=== PATIENT | male | born 1955 | race Caucasian/White ===

== ENCOUNTER 2021-01-27 18:07 | Emergency (ER) | payer OTHER ==
[~2021-01-27] VITALS: Ht 165.1 cm; Wt 104.3 kg
[2021-01-27 18:16] VITALS: BP 165/83
[2021-01-27] MEDS ORDERED: MAGNESIUM CITRATE 300 ML BTL PO ONE (19:00)
[2021-01-27 19:16] LABS: BASOPHILS # (AUTO) 0.1 K/uL (0.00-0.22); BASOPHILS % (AUTO) 0.6 % (0.0-2.0); EOSINOPHILS # (AUTO) 0.2 K/uL (0-0.4); EOSINOPHILS % (AUTO) 2.6 % (0.0-4.0); HEMATOCRIT 36.3 % (36-52); HEMOGLOBIN 12.3 g/dL (12.0-18.0); LYMPHOCYTES # (AUTO) 1.8 K/uL (2.0-11.5); LYMPHOCYTES % (AUTO) 20.1 % (20.5-51.1); MEAN CORPUSCULAR HEMOGLOBIN 33 pg (27-31); MEAN CORPUSCULAR HGB CONC 34 g/dL (33-37); MEAN CORPUSCULAR VOLUME 96.3 fL (80-94); MONOCYTES # (AUTO) 0.7 K/uL (0.8-1.0); MONOCYTES % (AUTO) 8.4 % (1.7-9.3); NEUTROPHILS % (AUTO) 68.3 % (42.2-75.2); PLATELET COUNT (AUTO) 262 K/uL (140-450); RED BLOOD CELL COUNT(AUTO) 3.77 MIL/uL (4.20-6.10); RED CELL DISTRIBUTION WIDTH 13.7 % (11.6-13.7); WHITE BLOOD COUNT (AUTO) 8.8 K/uL (4.8-10.8)
[2021-01-27 19:35] LABS: ANION GAP 11.7 (8-16); CARBON DIOXIDE 26.6 mmol/L (21-32); CREATININE 1.4 mg/dL (0.6-1.3); POTASSIUM 4.3 mmol/L (3.5-5.1); TOTAL BILIRUBIN 0.3 mg/dL (0.0-1.0)
--- NOTE | 2021-01-27 20:04 | NUR ---
pt. taken to x-ray
--- NOTE | 2021-01-27 20:07 | NUR ---
PT TAKEN TO BED #11 VIA W/C
[2021-01-27] MEDS ORDERED: MAGNESIUM CITRATE 300 ML BTL ONE (20:15)
[2021-01-27 20:23] VITALS: BP 146/87
--- NOTE | 2021-01-27 20:30 | NUR ---
Dr. Limon with pt for MSE
[2021-01-27] MEDS ORDERED: DOCU-299 PO (21:06)
[2021-01-27] MEDS ORDERED: MIRABULK PO (21:06)
--- NOTE | 2021-01-27 21:20 | NUR ---
Patient discharged with v/s stable. Written and verbal after care instructions given and explained. Patient alert, oriented and verbalized understanding of instructions. Ambulatory with steady gait. All questions addressed prior to discharge. ID band removed. Patient advised to follow up with PMD. Rx of MIRALAX AND COLACE given. Patient educated on indication of medication including possible reaction and side effects. Opportunity to ask questions provided and answered.
== END 2021-01-27 21:20 | disposition home or self-care (01) ==
LOC: MED 18:07
DX: K59.03 Drug induced constipation (principal); T40.2X5A Adverse effect of other opioids, initial encounter; I10 Essential (primary) hypertension; Z98.890 Other specified postprocedural states; Z79.899 Other long term (current) drug therapy; Y92.89 Other specified places as the place of occurrence of the external cause
CPT/HCPCS: 36415; 74018; 80053; 81002; 83690; 85025; 99284

== ENCOUNTER 2021-02-03 13:38 | Emergency (ER) | payer OTHER ==
[~2021-02-03] VITALS: Ht 165.1 cm; Wt 109.8 kg
[~2021-02-03 13:38] MED LIST: DOCU-299 PO; MIRABULK PO
[2021-02-03 14:04] VITALS: BP 138/73
--- NOTE | 2021-02-03 14:09 | NUR ---
SPECIMEN CUP FOR URINE COLLECTION GIVEN TO PATIENT
--- NOTE | 2021-02-03 14:10 | NUR ---
ASKED PT TO WAIT IN LOBBY
--- NOTE | 2021-02-03 14:47 | NUR ---
PT AMBULATED TO BED 9
--- NOTE | 2021-02-03 15:00 | NUR ---
65 y/o M BIB self from home with c/c Right flank pain x 5AM today. Patient A&Ox, ambulatory, states he was seen here 1-2 weeks ago for constipation and states concern of possible kidney stones. Patient reports history of kidney stones and states symptoms are similar. Patient reports 9/10, sharp, constant, non-radiating pain to R flank region. Patient reports [place] 5-325 at 0530 today without relief to pain. patietn denies dysuria, abdominal pain, N/V/D, SOB, chest pain, dizziness, other urinary or bladder symptoms. patietn states last BM today/hard/small/dark brown & green. Staets pain worsens wit hsitting up and drinking fluids; laying down alleviates pain. Patient placed into a gown. VSS; respirations even/unlabored. residential monitor in place. Bed locked in lowest position, side rails x 1, call light in reach. PMH: HTN, kidney stones Meds: Metoprolol NKA Sx: denies
--- NOTE | 2021-02-03 15:18 | NUR ---
Dr. Sherwood is evaluating patient at bedside.
[2021-02-03] MEDS ORDERED: KETOROLAC 30 MG/ML VIAL IVP ONE (15:30)
[2021-02-03] MEDS ORDERED: NACL 0.9% 1,000 ML IV ONE (15:30)
--- NOTE | 2021-02-03 15:41 | NUR ---
Patient transported to CT via wheelchair. IV fluids and Toradol withheld until patient returns.
--- NOTE | 2021-02-03 16:00 | NUR ---
Patient returned from CT via wheelchair.
--- NOTE | 2021-02-03 16:46 | NUR ---
Lab at bedside.
[2021-02-03 16:58] LABS: BASOPHILS # (AUTO) 0.2 K/uL (0.00-0.22); BASOPHILS % (AUTO) 2.4 % (0.0-2.0); EOSINOPHILS # (AUTO) 0.2 K/uL (0-0.4); HEMATOCRIT 31.2 % (36-52); HEMOGLOBIN 10.7 g/dL (12.0-18.0); MEAN CORPUSCULAR HEMOGLOBIN 33 pg (27-31); MEAN CORPUSCULAR HGB CONC 34 g/dL (33-37); MEAN CORPUSCULAR VOLUME 96.1 fL (80-94); MONOCYTES % (AUTO) 12.9 % (1.7-9.3); NEUTROPHILS # (AUTO) 5.3 K/uL (1.8-7.7); NEUTROPHILS % (AUTO) 68.7 % (42.2-75.2); PLATELET COUNT (AUTO) 243 K/uL (140-450); RED BLOOD CELL COUNT(AUTO) 3.24 MIL/uL (4.20-6.10); RED CELL DISTRIBUTION WIDTH 13.5 % (11.6-13.7); WHITE BLOOD COUNT (AUTO) 7.8 K/uL (4.8-10.8)
[2021-02-03 17:10] LABS: ANION GAP 13.3 (8-16); CARBON DIOXIDE 25.3 mmol/L (21-32); POTASSIUM 4.6 mmol/L (3.5-5.1)
--- NOTE | 2021-02-03 17:14 | NUR ---
Patient ambulated to restroom with steady/even gait.
--- NOTE | 2021-02-03 17:29 | NUR ---
Patient reports pain 03/10; Dr. Sherwood made aware and orders placed.
[2021-02-03] MEDS ORDERED: HYDROcodone/APAP 5/325 MG 1 TAB TAB PO ONE (17:30)
[2021-02-03 17:39] LABS: APPEARANCE,URINE CLEAR (CLEAR); BILIRUBIN,URINE NEGATIVE (NEGATIVE); BLOOD, URINE NEGATIVE (NEGATIVE); COLOR,URINE YELLOW (YELLOW); LEUKOCYTE ESTERASE ,URINE NEGATIVE (NEGATIVE); NITRITE, URINE NEGATIVE (NEGATIVE); UGLUCOSE NEGATIVE (NEGATIVE)
--- NOTE | 2021-02-03 18:00 | NUR ---
Patient reports positive relief from pain; states 2/10 pain at this time. equipment monitor phototypesetting remains in place. Bed locked in lowest position, side rails x 1, call light in reach.
--- NOTE | 2021-02-03 18:00 | NUR ---
Patient requesting results of CT scan and lab work; states dissatisfaction of long wait times and miscommunication with urine sample. Dr. Sherwood made aware.
--- NOTE | 2021-02-03 18:06 | NUR ---
Dr. Sherwood is reevaluating patient at bedside.
[2021-02-03] MEDS ORDERED: LIDO4CRE18 TP (18:14)
[2021-02-03 18:32] VITALS: BP 137/72
== END 2021-02-03 18:32 | disposition home or self-care (01) ==
LOC: MED 13:38
DX: K59.03 Drug induced constipation (principal); T40.2X5A Adverse effect of other opioids, initial encounter; I10 Essential (primary) hypertension; Z87.442 Personal history of urinary calculi; Z79.899 Other long term (current) drug therapy; Y92.89 Other specified places as the place of occurrence of the external cause
CPT/HCPCS: 36415; 74176; 80048; 81003; 85025; 96361; 96374; 99284; J1885; J7030

== ENCOUNTER 2021-02-07 09:29 | Emergency (ER) | payer OTHER ==
[~2021-02-07] VITALS: Ht 165.1 cm; Wt 104.3 kg
[~2021-02-07 09:29] MED LIST changes: +LIDO4CRE18 TP
[2021-02-07 09:36] VITALS: BP 149/78
[2021-02-07] MEDS ORDERED: BENZ-196 PO (10:08)
[2021-02-07 10:14] VITALS: BP 149/78
[2021-02-08] MEDS ORDERED: ACET-8386 PO (07:41)
== END 2021-02-07 10:15 | disposition home or self-care (01) ==
LOC: MED 09:29
DX: R05 Cough (principal); I10 Essential (primary) hypertension; Z79.899 Other long term (current) drug therapy
CPT/HCPCS: 99283

== ENCOUNTER 2021-02-08 05:23 | Emergency (ER) | payer OTHER ==
[~2021-02-08] VITALS: Ht 165.1 cm; Wt 99.8 kg
[~2021-02-08 05:23] MED LIST changes: +BENZ-196 PO
[2021-02-08 05:25] VITALS: BP 157/78
[2021-02-08] MEDS ORDERED: MORPHINE SULFATE 4 MG/ML SYR IM ONE (06:15)
[2021-02-08] MEDS ORDERED: KETOROLAC 30 MG/ML VIAL IM ONE (06:15)
[2021-02-08] MEDS ORDERED: KETOROLAC 15 MG/ML VIAL ONE (06:18)
[2021-02-08] MEDS ORDERED: MORPHINE SULFATE 5 MG/ML VIAL ONE (06:18)
[2021-02-08 07:29] LABS: OPIATE, URINE POSITIVE ng/mL (NEG <=2000)
[2021-02-08 07:30] LABS: BARBITURATE, URINE NEGATIVE ng/ml (NEG <=200); BENZODIAZEPINE, URINE NEGATIVE ng/mL (NEG <=200); CANNABINOID, URINE NEGATIVE ng/mL (NEG <=50); COCAINE, URINE NEGATIVE ng/mL (NEG <=300); PHENCYCLIDINE SCREEN,URINE NEGATIVE ng/mL (NEG <=25)
[2021-02-08] MEDS ORDERED: ACET-8386 PO (07:41)
[2021-02-08 08:21] VITALS: BP 133/84
== END 2021-02-08 08:20 | disposition home or self-care (01) ==
LOC: MED 05:23
DX: J06.9 Acute upper respiratory infection, unspecified (principal); M54.5 Low back pain; R10.9 Unspecified abdominal pain; Z79.899 Other long term (current) drug therapy
CPT/HCPCS: 71045; 80305; 81002; 96372; 99284; J1885; J2270

== ENCOUNTER 2021-06-08 12:50 | Emergency (ER) | payer OTHER ==
[~2021-06-08] VITALS: Ht 167.6 cm; Wt 99.8 kg
[~2021-06-08 12:50] MED LIST changes: +ACET-8386 PO
[2021-06-08 12:57] VITALS: BP 152/72
[2021-06-08] MEDS ORDERED: KETOROLAC 30 MG/ML VIAL IM ONE (13:35)
[2021-06-08] MEDS ORDERED: NAPR-54 PO (14:22)
[2021-06-08] MEDS ORDERED: KETOROLAC 30 MG/ML VIAL ONE (14:58)
[2021-06-08 15:15] VITALS: BP 152/72
--- NOTE | 2021-06-08 15:15 | NUR ---
NO NUSRING CARE GIVEN-Patient discharged with v/s stable. Written and verbal after care instructions given and explained. Patient alert, oriented and verbalized understanding of instructions. Ambulatory with steady gait. All questions addressed prior to discharge. ID band removed. Patient advised to follow up with PMD. Rx of NAPROSYN given. Patient educated on indication of medication including possible reaction and side effects. Opportunity to ask questions provided and answered.
== END 2021-06-08 15:15 | disposition home or self-care (01) ==
LOC: MED 12:50
DX: M75.22 Bicipital tendinitis, left shoulder (principal); Z79.899 Other long term (current) drug therapy; Z79.891 Long term (current) use of opiate analgesic
CPT/HCPCS: 93971; 96372; 99284; J1885; Q0092

== ENCOUNTER 2021-09-27 08:32 | Emergency (ER) | payer OTHER ==
[~2021-09-27] VITALS: Ht 165.1 cm; Wt 109.3 kg
[~2021-09-27 08:32] MED LIST changes: +NAPR-54 PO
[2021-09-27 08:35] VITALS: BP 158/93
--- NOTE | 2021-09-27 08:51 | NUR ---
ERMD AT BEDSIDE EXAMINING PT
[2021-09-27] MEDS ORDERED: PRED20TA5 PO (08:57)
[2021-09-27] MEDS ORDERED: INDO-323 PO (08:57)
[2021-09-27 09:14] VITALS: BP 158/93
--- NOTE | 2021-09-27 09:14 | NUR ---
No nursing interventions implemented. Patient discharged with v/s stable. Written and verbal after care instructions given and explained. Patient alert, oriented and verbalized understanding of instructions. Ambulatory with steady gait. All questions addressed prior to discharge. ID band removed. Patient advised to follow up with PMD. Rx of INDOCIN AND DELTASONE given. Patient educated on indication of medication including possible reaction and side effects. Opportunity to ask questions provided and answered.
== END 2021-09-27 09:14 | disposition home or self-care (01) ==
LOC: MED 08:32
DX: M10.062 Idiopathic gout, left knee (principal)
CPT/HCPCS: 99283